=== PATIENT | male | born 1940 | race Caucasian/White ===

== ENCOUNTER 2018-07-21 13:07 | Emergency (ER) | payer OTHER ==
[2018-07-21 13:31] VITALS: BP 138/90; PULSE 97; TEMP 97.8; BMI 20.7
--- NOTE | 2018-07-21 14:44 | PDOC ---
History of Present Illness - General Chief Complaint: Back Pain Stated Complaint: FALL/LOWER BACK PAIN Time Seen by Provider: 07/21/18 14:31 - History of Present Illness Initial Comments: 07/21/18 14:42 78-year-old male without comorbidities presents for evaluation of right-sided lower back pain without radicular symptoms or loss of bowel or bladder function. He states he was lifting up an object yesterday when he felt a sharp pain on the right side of his lower back. Past History - Past Medical History Allergies/Adverse Reactions: Allergies Allergy/AdvReac Type Severity Reaction Status Date / Time No Known Drug Allergies Allergy Verified 04/15/12 09:24 Home Medications: Ambulatory Orders Diazepam [Valium] 2.5 mg PO PRN PRN 04/14/12 Lorazepam [Ativan] 0.5 mg PO PRN PRN 04/14/12 Cyclobenzaprine HCl [Flexeril 10 mg] 10 mg PO HS PRN #10 tablet 07/21/18 Anemia: No Asthma: No Cancer: No Cardiac Disorders: No CVA: No COPD: No CHF: No Dementia: No Diabetes: No GI Disorders: No Disorders: No HTN: No Hypercholesterolemia: No Liver Disease: No Seizures: No Thyroid Disease: No - Surgical History Abdominal Surgery: No Appendectomy: No Cardiac Surgery: No Cholecystectomy: No Lung Surgery: No Neurologic Surgery: No Orthopedic Surgery: No - Suicide/Smoking/Psychosocial Hx Smoking History: Never smoked Have you smoked in the past 12 months: No Information on smoking cessation initiated: No Hx Alcohol Use: No Drug/Substance Use Hx: No Substance Use Type: None Hx Substance Use Treatment: No Review of Systems - Review of Systems Musculoskeletal: Yes: Back Pain *Physical Exam - Vital Signs Last Vital Signs Temp Pulse Resp BP Pulse Ox 97.8 F 97 H 20 138/90 99 07/21/18 13:27 07/21/18 13:27 07/21/18 13:27 07/21/18 13:27 07/21/18 13:27 - Physical Exam Comments: 07/21/18 14:43 Patient ambulates, lumbar spine skin color and temperature are normal. Range of motion is limited. There is tenderness about the right paralumbar musculature. No midline tenderness. 5 out of 5 strength in bilateral lower extremities without gross sensorimotor deficits. Moderate Sedation - Procedure Monitoring Vital Signs: Procedure Monitoring Vital Signs Temperature 97.8 F 07/21/18 13:27 Pulse Rate 97 H 07/21/18 13:27 Respiratory Rate 20 07/21/18 13:27 Blood Pressure 138/90 07/21/18 13:27 O2 Sat by Pulse Oximetry (%) 99 07/21/18 13:27 ED Treatment Course - RADIOLOGY Radiology Studies Ordered: Category Date Time Status SPINE-LUMBAR ONLY [RAD] Stat Radiology 07/21/18 14:36 Ordered Medical Decision Making - Medical Decision Making 07/21/18 14:57 no fx *DC/Admit/Observation/Transfer Diagnosis at time of Disposition: Lumbar strain - Discharge Dispostion Disposition: HOME Condition at time of disposition: Improved Decision to Admit order: No - Prescriptions Prescriptions: Cyclobenzaprine HCl [Flexeril 10 mg] 10 mg PO HS PRN #10 tablet PRN Reason: Muscle Spasms - Referrals Referrals: Riley Rodrigues MD [Staff Physician] - - Patient Instructions Printed Discharge Instructions: Muscle Strain, Low Back Pain, DI for Low Back Pain Additional Instructions: Please take Tylenol as directed for pain. The muscle relaxers one tablet before bedtime and will make you sleepy. Return to the emergency room for worsening of symptoms. Follow-up with spine surgery in 1-2 days for further evaluation and treatment options. - Post Discharge Activity
[2018-07-21] MEDS ORDERED: KETOROLAC TROMETHAMINE 60 MG/2 ML VIAL IM ONE (14:56)
[2018-07-21] MEDS ORDERED: KETOROLAC TROMETHAMINE 60 MG/2 ML VIAL ONE (15:00)
== END 2018-07-21 15:10 | disposition home or self-care (01) ==
LOC: JERFT 13:07
PROC: 3E0233Z Introduction of Anti-inflammatory into Muscle, Percutaneous Approach (ICD-10-PCS; principal; 2018-07-21)
DX: S39.012A Strain of muscle, fascia and tendon of lower back, initial encounter (principal); X50.0XXA Overexertion from strenuous movement or load, initial encounter; Y93.89 Activity, other specified; Y92.89 Other specified places as the place of occurrence of the external cause; Y99.8 Other external cause status
CPT/HCPCS: 72100-TC-FY; 96372; 99281-25